=== PATIENT | male | born 2000 | race Caucasian/White ===

== ENCOUNTER 2023-04-06 15:05 | Emergency (ER) | payer BC, SELFPAY ==
[2023-04-06 15:24] VITALS: BP 151/99; PULSE 133; RESP 16; TEMP 36.3; O2SAT 99
--- NOTE | 2023-04-06 15:27 | ED.SKABFB ---
HPI - Skin/Abscess/Foreign Bdy General Chief complaint: Skin/Abscess/Foreign Body Stated complaint: rash Time Seen by Provider: 04/06/23 15:25 Mode of arrival: ambulatory Limitations: no limitations History of Present Illness HPI narrative: 22-year-old male presents with multiple concerns. He reports he has poison erendira on his arms. Reports he has had reactions to poison erendira in the past. Reports he has been using alcohol and lotion with no relief of the rash. The separate complaint he reports he is worried about a UTI because he has been lightheaded had low back pain. Reports he has had a UTI in the past with similar symptoms. He reports he has been experiencing some chills and some general malaise recently. Denies dysuria, urgency. Reports frequency MD complaint: rash and other (Urinary tract infection) Related Data Home Medications Medication Instructions Recorded Confirmed hydroxyzine HCl 25 mg tablet mg 04/06/23 metoprolol tartrate 25 mg tablet mg 04/06/23 oxcarbazepine 300 mg tablet mg 04/06/23 Allergies Allergy/AdvReac Type Severity Reaction Status Date / Time No Known Allergies Allergy Verified 04/06/23 15:37 Review of Systems Review of Systems: CONSTITUTIONAL: Reports malaise, chills. Denies sweats, or fever. EYES: Denies visual changes, redness, or discharge. ENT: Reports rhinorrhea, congestion. Denies sinus pain, otalgia or sore throat. CARDIOVASCULAR: Denies chest pain, palpitations, or edema. RESPIRATORY: Denies cough or dyspnea. GASTROINTESTINAL: Denies abdominal pain, nausea, vomiting, diarrhea, bloody GENITOURINARY: Denies dysuria or hematuria. Reports urine frequency SKIN: Reports itchy rash in bilateral arms MUSCULOSKELETAL: Reports low back pain, myalgia. NEUROLOGIC: Denies numbness, weakness, or headache. Reports lightheadedness PSYCHIATRIC: Denies anxiety or depression. All systems reviewed & are unremarkable except as noted in HPI and below PMFSH Comments At time of signature, agree with nursing past medical, surgical, social and family history. There is no relevant family history pertinent to the presenting complaint Exam Narrative: GENERAL: Well-appearing, well-nourished, and in no acute distress. HEAD: Normocephalic, atraumatic. EYES: PERRLA, sclera clear, and EOMI. No nystagmus. ENT: Nares clear, turbinates pink, no rhinorrhea or epistaxis. Mucous membranes moist. TM pearly duran with sharp light reflex bilaterally; no tragal tenderness. Oropharynx without erythema or lesions. Tonsils not enlarged and without exudate. NECK: Supple. No lymphadenopathy. No jugular venous distension, thyromegaly, or carotid bruits. Carotids were easily palpable bilaterally. CHEST: No respiratory distress. Clear to auscultation. No bony deformities, no asymmetry. Speaks in full sentences. HEART: Regular rate and rhythm. No murmur heard. Normal peripheral pulses. ABDOMEN: Soft, nontender, nondistended, normal active bowel sounds, no palpable masses. No CVA tenderness EXTREMITIES: Normal range of motion. No edema. Normal strength and sensation. SKIN: Warm, dry. Erythematous papular rash noted on bilateral arms NEURO: Alert and oriented x3. = PSYCH: Normal mood and affect Course Course Emergency Course: Patient is aware of diagnosis, understands and agrees to treatment plan. Anticipatory guidance given. Patient agrees to follow-up as directed and is aware of reasons to seek care at the emergency department. Portions of this record may have been created with voice recognition software Level of Care: Express Care Visit Vital Signs Vital signs: Vital Signs Temperature 97.3 F L 04/06/23 15:24 Pulse Rate 133 H 04/06/23 15:24 Respiratory Rate 16 04/06/23 15:24 Blood Pressure 151/99 H 04/06/23 15:24 Pulse Oximetry 99 04/06/23 15:24 Temperature 97.3 F L 04/06/23 15:24 Pulse Rate 133 H 04/06/23 15:24 Respiratory Rate 16 04/06/23 15:24 Blood Pressure 151/99 H 03/22
== END 2023-04-06 15:42 | disposition home or self-care (01) ==
PROVIDERS: Emergency Provider Nurse Practitioner
DX: L25.9 Unspecified contact dermatitis, unspecified cause (principal); R35.0 Frequency of micturition; M54.50 Low back pain, unspecified; R53.81 Other malaise
CPT/HCPCS: 81003; 87086; 99213; G0463

== ENCOUNTER 2023-04-09 22:47 | Emergency (ER) | payer BC, SELFPAY ==
--- NOTE | ~2023-04-09 | CT_ITS ---
EXAMINATION: CT abdomen pelvis wo con DATE: 04/10/2023 00:59 INDICATION: Flank pain and hematuria TECHNIQUE: Computed tomography (CT) of the abdomen and pelvis was performed without intravenous contr ast. The dose-length product (DLP) was 263.69 mGy-cm. Automated exposure control and iterative recons truction technique were employed. COMPARISON: None FINDINGS: The lung bases are clear. The heart size is normal. The liver, spleen, pancreas, gallbladde r, and adrenal glands are normal. The kidneys are unremarkable. No pathologically enlarged abdominal or pelvic lymph nodes are identified. There is no free intraperitoneal gas or evidence of bowel obstr uction. IMPRESSION: 1. No CT correlate for the patient's symptoms. Reviewed, dictated and finalized at location A.
[2023-04-09 22:48] VITALS: BP 140/86; PULSE 73; RESP 18; TEMP 36.5; O2SAT 100
[2023-04-10 01:03] LABS: Appearance Urine Clear (Clear); Basophils Percent Auto 0.2 % (0.2-1.2); Bilirubin Urine Negative (Negative); Blood Urine Negative (Negative); Color Urine Yellow (Yellow); Glucose Urine UA Negative (Negative); Hematocrit 50.9 % (42.0-52.0); Hemoglobin 17.5 g/dL (14.0-18.0); Immature Granulocyte Absolute 0.07 K/mm3 (0.00-0.031); Immature Granulocyte Percent A 0.5 % (0-0.5); Ketones Urine Negative (Negative); Leukocyte Esterase Ur Negative LEU/UL (Negative); Lymphocytes Absolute Auto 1.99 K/mm3 (0.9-3.2); Lymphocytes Percent Auto 15.2 % (18.3-44.2); Mean Corpuscular HGB Conc 34.4 g/dl (32-36); Mean Corpuscular Hemoglobin 30.6 pg (26-34); Mean Platelet Volume 9.1 fl (7.4-10.4); Monocytes Absolute Auto 1.6 K/mm3 (0.1-0.6); Monocytes Percent Auto 12.5 % (2.6-8.5); Neutrophils Absolute Auto 9.4 K/mm3 (1.3-6.7); Neutrophils Percent Auto 71.6 % (45.5-73.1); Nitrate Urine Negative (Negative); Platelet Count Result 284 k/mm3 (150-375); Protein Urine Negative (Negative); Red Blood Count 5.72 M/mm3 (4.6-6.20); Red Cell Distribution Width 13.2 % (11.5-14.5); Specific Grav Ur 1.014 (1.001-1.035); Urobilinogen Urine 0.2 mg/dL (<2.0); White Blood Count 13.1 K/mm3 (4.5-10.0); pH Urine 6.5 (5.0-9.0)
[2023-04-10] MEDS: HYDROcodone/acetaminophen (*CRX) 5-325 MG TABLET 1 TAB PO (01:09)
--- NOTE | 2023-04-10 01:32 | ED.GENADULT ---
HPI - General Adult General Chief complaint: Back Pain/Injury Stated complaint: back pain Time Seen by Provider: 04/10/23 00:01 History of Present Illness HPI narrative: Patient is a 22-year-old gentleman who presents the emergency department with chief complaint of flank pain. Patient reports he was seen in urgent care in the last couple days after he started having flank pain. The patient was told that he had blood in his urine and reports that he was started on antibiotics. Patient states that he does not believe that he has a urinary tract infection and is concerned there may be something else going on. Related Data Home Medications Medication Instructions Recorded Confirmed hydroxyzine HCl 25 mg tablet mg 04/06/23 metoprolol tartrate 25 mg tablet mg 04/06/23 oxcarbazepine 300 mg tablet mg 04/06/23 Allergies Allergy/AdvReac Type Severity Reaction Status Date / Time No Known Allergies Allergy Verified 04/09/23 23:12 Review of Systems Review of Systems: A 10 system review of systems was completed on the patient and is negative except for what is stated in the HPI. Nursing and ancillary documentation was reviewed. Exam Narrative: GENERAL: Well-appearing, well-nourished, and in no acute distress. HEAD: Normocephalic, atraumatic. EYES: PERRLA and EOMI. ENT: Nares clear, no rhinorrhea or epistaxis. Mucous membranes moist. NECK: Supple. CHEST: Clear to auscultation. No respiratory distress. HEART: Regular rate and rhythm. No murmur heard. Normal peripheral pulses. ABDOMEN: Soft, nontender, nondistended, normal active bowel sounds. EXTREMITIES: Normal range of motion. No edema. SKIN: Warm, dry, no rash. NEURO: No focal deficits. Alert and oriented x3. PSYCH: Normal mood and affect. Course Vital Signs Vital signs: Vital Signs Temperature 36.5 C 04/09/23 22:48 Pulse Rate 73 04/09/23 22:48 Respiratory Rate 18 04/09/23 22:48 Blood Pressure 140/86 04/09/23 22:48 Pulse Oximetry 100 04/09/23 22:48 Oxygen Delivery Room Air 04/09/23 22:48 Temperature 36.5 C 04/09/23 22:48 Pulse Rate 55 L 04/10/23 02:22 Respiratory Rate 20 04/10/23 02:22 Blood Pressure 114/72 04/10/23 02:22 Pulse Oximetry 98 04/10/23 02:22 Oxygen Delivery Room Air 04/09/23 22:48 Medical Decision Making MDM Narrative Medical decision making narrative: Differential diagnosis includes cholelithiasis cholecystitis, kidney stone ureterolithiasis, pyelonephritis with obstructing uropathy. Acute kidney injury, flank pain, musculoskeletal pain. Laboratory studies were obtained which showed a white count of 13.1 electrolytes are within normal limits creatinine was 0.6 and BUN was 15 CT scan of the abdomen pelvis was obtained to evaluate for possible intra-abdominal or ureteral pathology. CT scan showed no acute abnormalities. The patient will be discharged home on a anti-inflammatory and muscle relaxer the patient should complete the course of the antibiotics that he has been prescribed at urgent care. Vital Signs Vital Signs: Vital Signs Temperature 36.5 C 04/09/23 22:48 Pulse Rate 73 04/09/23 22:48 Respiratory Rate 18 04/09/23 22:48 Blood Pressure 140/86 04/09/23 22:48 Pulse Oximetry 100 04/09/23 22:48 Oxygen Delivery Room Air 04/09/23 22:48 Temperature 36.5 C 04/09/23 22:48 Pulse Rate 55 L 04/10/23 02:22 Respiratory Rate 20 04/10/23 02:22 Blood Pressure 114/72 04/10/23 02:22 Pulse Oximetry 98 04/10/23 02:22 Oxygen Delivery Room Air 04/09/23 22:48 Lab Data 04/10/23 00:51 04/10/23 02:08 Labs: Lab Results 04/10/23 04/10/23 Range/Units 00:51 02:08 WBC 13.1 H (4.5-10.0) K/mm3 RBC 5.72 (4.6-6.20) M/mm3 Hgb 17.5 (14.0-18.0) g/dL Hct 50.9 (42.0-52.0) % MCV 89.0 (80-100) fl MCH 30.6 (26-34) pg MCHC 34.4 (32-36) g/dl RDW 13.2 (11.5-14.5) % Plt Count 284 (150-375) k
[2023-04-10 01:46] LABS: Add Urine Microscopic? NO
[2023-04-10 02:22] VITALS: BP 114/72; PULSE 55; RESP 20; O2SAT 98
[2023-04-10 02:24] LABS: Alanine Aminotransferase 34 U/L (6-50); Albumin Level 4.1 g/dL (3.5-5.1); Alkaline Phosphatase 52 U/L (38-126); Anion Gap 5 mmol/L (8-16); Aspartate Amino Transferase 36 U/L (17-59); Bilirubin,Total 0.8 mg/dL (0.2-1.3); Blood Urea Nitrogen 15 mg/dL (9-20); Calcium 8.2 mg/dL (8.4-10.2); Carbon Dioxide 29 mmol/L (22-30); Chloride 100 mmol/L (98-107); Estimated CRCL calculation 160 ml/min; Estimated Glomerular Filt Rate > 60; Glucose 99 mg/dL (65-110); Lipase 44 U/L (23-300); Potassium 4.3 mmol/L (3.4-5.0); Sodium 134 mmol/L (137-145)
== END 2023-04-10 02:46 | disposition home or self-care (01) ==
PROVIDERS: Emergency Provider Emergency Medicine
DX: R10.9 Unspecified abdominal pain (principal)
CPT/HCPCS: 36415; 74176; 80053; 81003; 83690; 85025; 99284; A9270